=== PATIENT | female | born 1985 | race African-American/Black ===

== ENCOUNTER 2019-01-23 15:18 | Inpatient (IN) | payer MEDICAID, OTHER ==
[~2019-01-23] VITALS: Ht 309.9 cm; Wt 90.7 kg
[~2019-01-23 15:18] MED LIST: ALBUTEROL; METOCLOPRAMIDE; OMEPRAZOLE
[2019-01-23] MEDS ORDERED: ONDANSETRON HCL 4MG/2ML INJ IV STA (16:23)
[2019-01-23] MEDS ORDERED: KETOROLAC 30MG/ML VIAL IV STA (16:23)
[2019-01-23] MEDS ORDERED: SODIUM CHLORIDE 0.9% 1,000 ML IV ONE (16:23)
[2019-01-23] MEDS ORDERED: DICYCLOMINE HCL 10MG/ML 2ML AMP IM ONE (16:30)
[2019-01-23 17:16] LABS: HEMATOCRIT. 41.5 % (36.0-48.0); HEMOGLOBIN. 13.5 g/dL (12.0-16.0); MEAN CORPUSCULAR HEMOGLOBIN 28.8 pg (28.0-32.0); MEAN CORPUSCULAR VOLUME 88.6 fL (81.0-99.0); MEAN PLATELET VOLUME 8.7 fl (7.4-10.4); PLATELET 284 x1000/uL (130-400); RED BLOOD CELL COUNT 4.68 mill/uL (4.2-5.4); RED CELL DISTRIBUTION WIDTH 16.1 % (11.6-14.6)
[2019-01-23 17:22] LABS: CHLORIDE 98 mEq/L (98-107)
[2019-01-23 17:34] LABS: INR 0.9; PROTHROMBIN TIME 9.8 sec (9.6-11.0)
[2019-01-23 17:40] LABS: HCG SCREEN NEGATIVE
[2019-01-23 17:49] LABS: PLATELET ESTIMATE NORMAL
[2019-01-23] MEDS ORDERED: ACETAMINOPHEN 325MG TABLET PO PRN (18:00)
[2019-01-23] MEDS ORDERED: HYDROCODONE/ACETAMINOPHEN 5/325MG TABLET PO PRN (18:00)
[2019-01-23] MEDS ORDERED: MAGNESIUM/ALUMINUM HYDROXIDE/SIMETHICONE 30ML UDC PO PRN (18:00)
[2019-01-23] MEDS ORDERED: GUAIFENESIN 200MG/10ML SUGAR FREE UDC PO PRN (18:00)
[2019-01-23] MEDS ORDERED: ONDANSETRON HCL 4MG/2ML INJ IV ONE (18:00)
[2019-01-23] MEDS ORDERED: DIPHENHYDRAMINE 50MG/ML VIAL IV PRN (18:00)
[2019-01-23] MEDS ORDERED: DOCUSATE SODIUM 100MG CAPSULE PO PRN (18:00)
[2019-01-23] MEDS ORDERED: LORAZEPAM 2MG/ML CPJ IV PRN (18:00)
[2019-01-23] MEDS ORDERED: POTASSIUM CHLORIDE 20MEQ TABLET SR PO ONE (18:00)
[2019-01-23] MEDS ORDERED: ENOXAPARIN 40MG/0.4ML SYR SUBCUT SCH (18:00)
[2019-01-23] MEDS ORDERED: CLONIDINE 0.1MG TABLET PO PRN (18:00)
[2019-01-23] MEDS ORDERED: IPRATROPIUM/ALBUTEROL 0.5-3(2.5)MG/3ML NEB INH PRN (18:00)
[2019-01-23] MEDS ORDERED: NA PHOS,M-B/NA PHOS,DI-BA ENEMA 118ML PR PRN (18:00)
[2019-01-23] MEDS ORDERED: ONDANSETRON HCL 4MG/2ML INJ IV PRN (18:00)
[2019-01-23] MEDS ORDERED: KCL 10MEQ/50ML PREMIX 50 ML IV ONE (18:00)
[2019-01-23] MEDS ORDERED: LEVOFLOXACIN 500MG PREMIX 100 ML IV NR (20:30)
[2019-01-23] MEDS ORDERED: METRONIDAZOLE 500 MG PREMIX 100 ML IV NR (20:30)
[2019-01-23 22:45] VITALS: BP 163/93
[2019-01-23] MEDS: MORPHINE SULFATE 2 MG/ML CPJ (NOT FOR IM USE) IV PRN (22:54)
[2019-01-24] VITALS (7 sets, daily range): BP systolic 107–164; BP diastolic 67–111
[2019-01-24] MEDS: SODIUM CHLORIDE 0.45% 1,000 ML IV SCH ×2 (01:26→17:09)
[2019-01-24] MEDS ORDERED: METRONIDAZOLE 500 MG PREMIX 100 ML IV SCH (06:00)
[2019-01-24] MEDS: MORPHINE SULFATE 2 MG/ML CPJ (NOT FOR IM USE) IV PRN ×4 (07:13→20:15)
[2019-01-24 07:16] LABS: CHLORIDE 102 mEq/L (98-107)
[2019-01-24 07:26] LABS: ETHANOL BLOOD < 10 mg/dL; LDL CHOLESTEROL 77 mg/dL (5-100)
[2019-01-24 07:29] LABS: T4 FREE 0.96 ng/dL (0.76-1.46)
[2019-01-24 07:30] LABS: HDL CHOLESTEROL 65 mg/dL (40-59)
[2019-01-24 07:35] LABS: BASOPHILS % 0.2 % (0.0-2.0); EOSINOPHILS % 0.1 % (0.0-5.0); HEMATOCRIT. 34.7 % (36.0-48.0); HEMOGLOBIN. 11.5 g/dL (12.0-16.0); LYMPHOCYTES % 14.9 % (20.0-50.0); MEAN CORPUSCULAR HEMOGLOBIN 29.3 pg (28.0-32.0); MEAN CORPUSCULAR VOLUME 88.2 fL (81.0-99.0); MEAN PLATELET VOLUME 8.8 fl (7.4-10.4); MONOCYTES % 9.2 % (2.0-8.0); NEUTROPHILS % 75.6 % (40.0-76.0); PLATELET 243 x1000/uL (130-400); RED BLOOD CELL COUNT 3.93 mill/uL (4.2-5.4)
[2019-01-24] MEDS: ENOXAPARIN 30MG/0.3ML SYR SUBCUT SCH ×2 (09:00→20:57)
[2019-01-24] MEDS ORDERED: POTASSIUM CHLORIDE INJ 40 MEQ in DEXT 5% WATER 250 ML IV SCH ×2 (09:00→10:00)
[2019-01-24] MEDS: OMEPRAZOLE 20MG CAPSULE EXTENDED RELEASE PO SCH (15:12)
[2019-01-24] MEDS: METRONIDAZOLE 500 MG PREMIX 100 ML IV SCH (17:09)
[2019-01-24] MEDS ORDERED: LEVOFLOXACIN 500MG PREMIX 100 ML IV SCH ×2 (18:00→23:00)
[2019-01-25] MEDS: METRONIDAZOLE 500 MG PREMIX 100 ML IV SCH ×2 (00:16→08:25)
[2019-01-25 00:22] VITALS: BP 109/60
[2019-01-25] MEDS: MORPHINE SULFATE 2 MG/ML CPJ (NOT FOR IM USE) IV PRN ×2 (00:25→09:25)
[2019-01-25 04:39] VITALS: BP 104/65
[2019-01-25] MEDS: OMEPRAZOLE 20MG CAPSULE EXTENDED RELEASE PO SCH (06:27)
[2019-01-25 08:00] VITALS: BP 120/72
[2019-01-25 08:17] LABS: BASOPHILS % 0.7 % (0.0-2.0); EOSINOPHILS % 0.3 % (0.0-5.0); HEMATOCRIT. 38.2 % (36.0-48.0); HEMOGLOBIN. 12.3 g/dL (12.0-16.0); MEAN CORPUSCULAR HEMOGLOBIN 28.9 pg (28.0-32.0); MEAN CORPUSCULAR VOLUME 89.6 fL (81.0-99.0); MEAN PLATELET VOLUME 8.8 fl (7.4-10.4); MONOCYTES % 10.7 % (2.0-8.0); NEUTROPHILS % 58.3 % (40.0-76.0); PLATELET 234 x1000/uL (130-400); RED BLOOD CELL COUNT 4.26 mill/uL (4.2-5.4); RED CELL DISTRIBUTION WIDTH 16.2 % (11.6-14.6)
[2019-01-25] MEDS: ENOXAPARIN 30MG/0.3ML SYR SUBCUT SCH (09:00)
[2019-01-25 09:02] LABS: CHLORIDE 104 mEq/L (98-107)
[2019-01-25] MEDS ORDERED: POTASSIUM CHLORIDE 20MEQ TABLET SR PO NR (12:15)
[2019-01-25 12:44] VITALS: BP 120/72
== END 2019-01-25 13:28 | disposition home or self-care (01) | DRG 241 ==
LOC: ER 15:18 → 6EST 17:51 → EDBEDREQ 17:57 → ENRESERV 22:23 → 6WST 01-24 11:40
PROVIDERS: ADMIT Internal Medicine; ATTEND Internal Medicine
DX: K29.70 Gastritis, unspecified, without bleeding (principal); R65.10 Systemic inflammatory response syndrome (SIRS) of non-infectious origin without acute organ dysfunction; R10.9 Unspecified abdominal pain; E86.0 Dehydration; E87.6 Hypokalemia; I10 Essential (primary) hypertension; F17.200 Nicotine dependence, unspecified, uncomplicated
CPT/HCPCS: 36415; 74176; 76705; 80048; 80061; 80320; 82150; 83735; 84132; 84439; 84443; 84703; 96361; 96372; 96374; 96375; 99285; J0500; J1650; J1885; J1956; J2270; J2405; J3480; J3490; J7030; J7060; G0480

== ENCOUNTER 2019-02-12 08:09 | Emergency (ER) | payer MEDICAID ==
[~2019-02-12] VITALS: Ht 157.5 cm; Wt 88.0 kg
[2019-02-12 09:02] LABS: BASOPHILS % 0.4 % (0.0-2.0); EOSINOPHILS % 0.2 % (0.0-5.0); HEMATOCRIT. 35.8 % (36.0-48.0); HEMOGLOBIN. 11.7 g/dL (12.0-16.0); LYMPHOCYTES % 13.7 % (20.0-50.0); MEAN CORPUSCULAR HEMOGLOBIN 28.8 pg (28.0-32.0); MEAN CORPUSCULAR VOLUME 88.1 fL (81.0-99.0); MONOCYTES % 4.9 % (2.0-8.0); NEUTROPHILS % 80.8 % (40.0-76.0); PLATELET 271 x1000/uL (130-400); RED BLOOD CELL COUNT 4.06 mill/uL (4.2-5.4); RED CELL DISTRIBUTION WIDTH 16.4 % (11.6-14.6)
[2019-02-12 09:10] LABS: CHLORIDE 108 mEq/L (98-107)
[2019-02-12] MEDS ORDERED: METOCLOPRAMIDE HCL 10MG/2ML VIAL IV ONE (09:15)
[2019-02-12] MEDS ORDERED: DIPHENHYDRAMINE 50MG/ML VIAL IV ONE (09:15)
[2019-02-12] MEDS ORDERED: SODIUM CHLORIDE 0.9% 1,000 ML IV ONE (09:15)
[2019-02-12] MEDS ORDERED: FAMOTIDINE 20MG/2ML VIAL IV ONE (09:15)
[2019-02-12 09:33] LABS: CLARITY URINE CLEAR (CLEAR); COLOR URINE YELLOW (YELLOW); KETONES URINE NEGATIVE (NEGATIVE); LEUKOCYTE ESTERASE URINE NEGATIVE (NEGATIVE); NITRITE URINE NEGATIVE (NEGATIVE); OCCULT BLOOD URINE TRACE (NEGATIVE); PH URINE 7.5 (4.5-8.0); PROTEIN URINE NEGATIVE (NEGATIVE); SPECIFIC GRAVITY URINE 1.013 (1.005-1.030); UROBILINOGEN URINE 0.2 E.U./dL (0.2-1.0)
[2019-02-12 14:40] VITALS: BP 156/89
== END 2019-02-12 15:10 | disposition home or self-care (01) ==
LOC: ER 08:20
DX: K29.70 Gastritis, unspecified, without bleeding (principal); R11.2 Nausea with vomiting, unspecified; F17.200 Nicotine dependence, unspecified, uncomplicated; Z79.899 Other long term (current) drug therapy
CPT/HCPCS: 36415; 80053; 81003; 81025; 83690; 85025; 85610; 96361; 96374; 96375; 99284; J1200; J2765; J3490; J7030

== ENCOUNTER 2019-05-27 18:24 | Inpatient (IN) | payer MEDICAID, OTHER ==
[~2019-05-27] VITALS: Ht 157.5 cm; Wt 86.2 kg
[2019-05-27] MEDS ORDERED: METOCLOPRAMIDE HCL 10MG/2ML VIAL IV STA (20:16)
[2019-05-27] MEDS ORDERED: FAMOTIDINE 20MG/2ML VIAL IV STA (20:16)
[2019-05-27] MEDS ORDERED: SODIUM CHLORIDE 0.9% 1,000 ML IV ONE (20:16)
[2019-05-27] MEDS ORDERED: ONDANSETRON HCL 4MG/2ML INJ IV STA (20:16)
[2019-05-27] MEDS ORDERED: VISCOUS LIDOCAINE 2% 15 ML UDC MM STA (21:16)
[2019-05-27] MEDS ORDERED: FAMOTIDINE 20MG/2ML VIAL IV ONE (21:30)
[2019-05-27] MEDS ORDERED: MAGNESIUM/ALUMINUM HYDROXIDE/SIMETHICONE 30ML UDC PO ONE (21:30)
[2019-05-27 23:36] LABS: BASOPHILS % 0.4 % (0.0-2.0); HEMATOCRIT. 40.5 % (36.0-48.0); HEMOGLOBIN. 13.1 g/dL (12.0-16.0); MEAN CORPUSCULAR HEMOGLOBIN 28.4 pg (28.0-32.0); MEAN CORPUSCULAR VOLUME 87.9 fL (81.0-99.0); MEAN PLATELET VOLUME 8.5 fl (7.4-10.4); MONOCYTES % 6.4 % (2.0-8.0); NEUTROPHILS % 85.2 % (40.0-76.0); PLATELET 281 x1000/uL (130-400); RED BLOOD CELL COUNT 4.61 mill/uL (4.2-5.4); RED CELL DISTRIBUTION WIDTH 17.4 % (11.6-14.6)
[2019-05-27 23:58] LABS: CLARITY URINE TURBID (CLEAR); COLOR URINE YELLOW (YELLOW); KETONES URINE TRACE (NEGATIVE); LEUKOCYTE ESTERASE URINE TRACE (NEGATIVE); NITRITE URINE NEGATIVE (NEGATIVE); OCCULT BLOOD URINE NEGATIVE (NEGATIVE); PROTEIN URINE 2+ (NEGATIVE); SPECIFIC GRAVITY URINE 1.023 (1.005-1.030)
[2019-05-28] MEDS: DEXT 5%/0.45% NACL 1000ML 1,000 ML IV SCH ×2 (00:30→14:14)
[2019-05-28 00:40] LABS: CHLORIDE 105 mEq/L (98-107)
[2019-05-28] MEDS ORDERED: MORPHINE SULFATE 4 MG/ML CPJ (NOT FOR IM USE) IV ONE (01:15)
[2019-05-28] MEDS: POTASSIUM CHLORIDE 20MEQ TABLET SR PO SCH ×2 (04:40→04:41)
[2019-05-28] MEDS ORDERED: DOCUSATE SODIUM 100MG CAPSULE PO PRN (07:00)
[2019-05-28] MEDS ORDERED: ENOXAPARIN 40MG/0.4ML SYR SUBCUT SCH (07:00)
[2019-05-28] MEDS ORDERED: ACETAMINOPHEN 650MG SUPP PR PRN (07:00)
[2019-05-28] MEDS ORDERED: CLONIDINE 0.1MG TABLET PO PRN (07:00)
[2019-05-28] MEDS ORDERED: GUAIFENESIN 200MG/10ML SUGAR FREE UDC PO PRN (07:00)
[2019-05-28] MEDS ORDERED: IPRATROPIUM/ALBUTEROL 0.5-3(2.5)MG/3ML NEB HHN PRN (07:00)
[2019-05-28] MEDS ORDERED: MAGNESIUM/ALUMINUM HYDROXIDE/SIMETHICONE 30ML UDC PO PRN (07:00)
[2019-05-28] MEDS ORDERED: NA PHOS,M-B/NA PHOS,DI-BA ENEMA 118ML PR PRN (07:00)
[2019-05-28] MEDS ORDERED: ACETAMINOPHEN 325MG TABLET PO PRN (07:00)
[2019-05-28] MEDS ORDERED: DIPHENHYDRAMINE 50MG/ML VIAL IV PRN (07:00)
[2019-05-28] MEDS ORDERED: ACETAMINOPHEN 650MG/20.3ML UDC GT PRN (07:00)
[2019-05-28] MEDS: ONDANSETRON HCL 4MG/2ML INJ IV PRN ×2 (08:23→21:54)
[2019-05-28 08:30] VITALS: BP 145/91
[2019-05-28] MEDS: MORPHINE SULFATE 2 MG/ML CPJ (NOT FOR IM USE) IV PRN ×3 (08:47→21:56)
[2019-05-28] MEDS: FOLIC ACID 1MG TABLET PO SCH (08:48)
[2019-05-28] MEDS: FAMOTIDINE 20MG/2ML VIAL IV SCH (08:48)
[2019-05-28] MEDS: THIAMINE HCL 100MG TABLET PO SCH (08:48)
[2019-05-28] MEDS: ENOXAPARIN 30MG/0.3ML SYR SUBCUT SCH ×3 (09:00→21:36)
[2019-05-28] MEDS: METOCLOPRAMIDE HCL 10MG/2ML VIAL IV SCH ×2 (11:32→17:29)
[2019-05-28 11:39] LABS: BASOPHILS % 0.7 % (0.0-2.0); HEMATOCRIT. 38.9 % (36.0-48.0); HEMOGLOBIN. 12.4 g/dL (12.0-16.0); LYMPHOCYTES % 10.2 % (20.0-50.0); MEAN CORPUSCULAR HEMOGLOBIN 28.1 pg (28.0-32.0); MEAN CORPUSCULAR VOLUME 88.1 fL (81.0-99.0); MEAN PLATELET VOLUME 8.7 fl (7.4-10.4); MONOCYTES % 6.4 % (2.0-8.0); NEUTROPHILS % 82.7 % (40.0-76.0); PLATELET 281 x1000/uL (130-400); RED BLOOD CELL COUNT 4.42 mill/uL (4.2-5.4); RED CELL DISTRIBUTION WIDTH 17.3 % (11.6-14.6)
[2019-05-28 11:47] LABS: PROTHROMBIN TIME 10.5 sec (9.6-11.0)
[2019-05-28 11:49] LABS: CHLORIDE 104 mEq/L (98-107)
[2019-05-28 11:53] LABS: ETHANOL BLOOD < 10 mg/dL
[2019-05-28] MEDS ORDERED: POTASSIUM CHLORIDE INJ 40 MEQ in DEXT 5% WATER 500 ML IV NR (13:00)
[2019-05-28 14:08] LABS: *AMPHETAMINES SCREEN URINE NEGATIVE (NEGATIVE); *BARBITURATES SCREEN URINE NEGATIVE (NEGATIVE); *BENZODIAZEPINES SCREEN URINE NEGATIVE (NEGATIVE); *COCAINE SCREEN URINE NEGATIVE (NEGATIVE); METHADONE URINE SCREEN NEGATIVE (NEGATIVE); PHENCYCLIDINE URINE SCREEN NEGATIVE (NEGATIVE)
[2019-05-28] MEDS: CHLORDIAZEPOXIDE 25MG CAPSULE PO SCH ×2 (14:10→21:32)
[2019-05-28] MEDS: SODIUM CHLORIDE 0.9% INJ 3ML FLUSH IVF SCH ×2 (14:14→21:32)
[2019-05-28 14:21] LABS: CANNABINOID URINE SCREEN PRESUMTIVE POSITIVE (NEGATIVE); OPIATES URINE SCREEN PRESUMTIVE POSITIVE (NEGATIVE)
[2019-05-28 16:00] VITALS: BP 173/79
[2019-05-28 20:00] VITALS: BP 110/69
[2019-05-29] VITALS (7 sets, daily range): BP systolic 100–150; BP diastolic 61–91
[2019-05-29] MEDS: ONDANSETRON HCL 4MG/2ML INJ IV PRN (04:07)
[2019-05-29] MEDS: MORPHINE SULFATE 2 MG/ML CPJ (NOT FOR IM USE) IV PRN ×4 (04:15→18:24)
[2019-05-29] MEDS: CHLORDIAZEPOXIDE 25MG CAPSULE PO SCH ×2 (06:00→14:20)
[2019-05-29] MEDS: METOCLOPRAMIDE HCL 10MG/2ML VIAL IV SCH ×4 (06:33→18:23)
[2019-05-29] MEDS: SODIUM CHLORIDE 0.9% INJ 3ML FLUSH IVF SCH ×2 (06:34→13:15)
[2019-05-29 06:54] LABS: BASOPHILS % 0.4 % (0.0-2.0); EOSINOPHILS % 0.1 % (0.0-5.0); MEAN CORPUSCULAR HEMOGLOBIN 28.9 pg (28.0-32.0); MEAN CORPUSCULAR VOLUME 86.6 fL (81.0-99.0); MEAN PLATELET VOLUME 8.5 fl (7.4-10.4); MONOCYTES % 8.2 % (2.0-8.0); NEUTROPHILS % 77.3 % (40.0-76.0); PLATELET 294 x1000/uL (130-400); RED BLOOD CELL COUNT 4.51 mill/uL (4.2-5.4); RED CELL DISTRIBUTION WIDTH 16.6 % (11.6-14.6)
[2019-05-29 07:03] LABS: CHLORIDE 101 mEq/L (98-107)
[2019-05-29 07:12] LABS: LDL CHOLESTEROL 93 mg/dL (5-100)
[2019-05-29 07:14] LABS: HDL CHOLESTEROL 59 mg/dL (40-59)
[2019-05-29] MEDS: FOLIC ACID 1MG TABLET PO SCH (09:06)
[2019-05-29] MEDS: FAMOTIDINE 20MG/2ML VIAL IV SCH (09:06)
[2019-05-29] MEDS: THIAMINE HCL 100MG TABLET PO SCH (09:06)
[2019-05-29] MEDS: DEXT 5%/0.45% NACL 1000ML 1,000 ML IV SCH (14:28)
[2019-05-29] MEDS ORDERED: POTASSIUM CHLORIDE 20MEQ TABLET SR PO NR (20:00)
== END 2019-05-29 20:24 | disposition home or self-care (01) | DRG 282 ==
LOC: ER 18:24 → EDBEDREQTM 05-28 01:13 → EDBEDREQ 05-28 01:13 → ENRESERV 05-28 07:07 → 6EST 05-28 08:11
PROVIDERS: ADMIT Family Medicine; ATTEND Family Medicine
DX: K85.90 Acute pancreatitis without necrosis or infection, unspecified (principal); D64.9 Anemia, unspecified; E87.6 Hypokalemia; F12.90 Cannabis use, unspecified, uncomplicated; F17.210 Nicotine dependence, cigarettes, uncomplicated; E86.0 Dehydration; F10.10 Alcohol abuse, uncomplicated; Z98.891 History of uterine scar from previous surgery; Z71.6 Tobacco abuse counseling; K52.9 Noninfective gastroenteritis and colitis, unspecified
CPT/HCPCS: 36415; 76700; 80048; 80061; 80305; 80320; 81003; 83735; 99285; J1200; J1650; J2270; J2405; J2765; J3480; J3490; J7030; J7060; G0480

== ENCOUNTER 2019-10-07 15:20 | Emergency (ER) | payer OTHER ==
[~2019-10-07] VITALS: Ht 157.5 cm; Wt 86.3 kg
[2019-10-07] MEDS ORDERED: MORPHINE SULFATE 2 MG/ML CPJ (NOT FOR IM USE) IV ONE (18:00)
[2019-10-07] MEDS ORDERED: ONDANSETRON HCL 4MG/2ML INJ IV STA (18:00)
[2019-10-07] MEDS ORDERED: SODIUM CHLORIDE 0.9% 1,000 ML IV ONE (18:00)
[2019-10-07 18:57] LABS: CHLORIDE 99 mEq/L (98-107)
[2019-10-07 19:01] LABS: INR 0.9; PROTHROMBIN TIME 9.8 sec (9.6-11.0)
[2019-10-07 19:02] LABS: CLARITY URINE CLEAR (CLEAR); COLOR URINE YELLOW (YELLOW); KETONES URINE 2+ (NEGATIVE); LEUKOCYTE ESTERASE URINE TRACE (NEGATIVE); NITRITE URINE NEGATIVE (NEGATIVE); OCCULT BLOOD URINE NEGATIVE (NEGATIVE); PROTEIN URINE 1+ (NEGATIVE); SPECIFIC GRAVITY URINE 1.022 (1.005-1.030); UROBILINOGEN URINE 0.2 E.U./dL (0.2-1.0)
[2019-10-07 19:03] LABS: HEMATOCRIT. 40.4 % (36.0-48.0); HEMOGLOBIN. 13.3 g/dL (12.0-16.0); MEAN CORPUSCULAR HEMOGLOBIN 26.6 pg (28.0-32.0); MEAN CORPUSCULAR VOLUME 81.1 fL (81.0-99.0); MEAN PLATELET VOLUME 8.2 fl (7.4-10.4); PLATELET 276 x1000/uL (130-400); RED BLOOD CELL COUNT 4.99 mill/uL (4.2-5.4); RED CELL DISTRIBUTION WIDTH 20.3 % (11.6-14.6)
[2019-10-07 19:08] LABS: HCG SCREEN NEGATIVE
[2019-10-07] MEDS ORDERED: KETOROLAC 30MG/ML VIAL IV NR (19:15)
[2019-10-07 19:30] VITALS: BP 168/74
[2019-10-07] MEDS ORDERED: MAGNESIUM/ALUMINUM HYDROXIDE/SIMETHICONE 30ML UDC PO ONE (19:45)
[2019-10-07] MEDS ORDERED: VISCOUS LIDOCAINE 2% 15 ML UDC PO ONE (19:45)
[2019-10-07 20:37] LABS: PLATELET ESTIMATE NORMAL
== END 2019-10-07 21:11 | disposition home or self-care (01) ==
LOC: ER 15:20
DX: A08.4 Viral intestinal infection, unspecified (principal); F12.10 Cannabis abuse, uncomplicated; Z87.19 Personal history of other diseases of the digestive system; Z98.890 Other specified postprocedural states
CPT/HCPCS: 36415; 80053; 81003; 81025; 83690; 84703; 85025; 85610; 96361; 96374; 96375; 99283; J1885; J2270; J2405; J7030; Z7610

== ENCOUNTER 2019-12-30 15:04 | Emergency (ER) | payer OTHER ==
[~2019-12-30] VITALS: Ht 157.5 cm; Wt 90.7 kg
[2019-12-30] MEDS ORDERED: SODIUM CHLORIDE 0.9% 1,000 ML IV ONE (16:38)
[2019-12-30] MEDS ORDERED: ONDANSETRON HCL 4MG/2ML INJ IV STA (16:38)
[2019-12-30] MEDS ORDERED: MORPHINE SULFATE 4 MG/ML CPJ (NOT FOR IM USE) IV STA (16:38)
[2019-12-30] MEDS ORDERED: FAMOTIDINE 20MG/2ML VIAL IV STA (16:38)
[2019-12-30 16:55] LABS: BASOPHILS % 0.3 % (0.0-2.0); EOSINOPHILS % 0.1 % (0.0-5.0); HEMATOCRIT. 39.9 % (36.0-48.0); LYMPHOCYTES % 8.9 % (20.0-50.0); MEAN CORPUSCULAR HEMOGLOBIN 26.8 pg (28.0-32.0); MEAN CORPUSCULAR VOLUME 82.3 fL (81.0-99.0); MEAN PLATELET VOLUME 8.3 fl (7.4-10.4); MONOCYTES % 6.8 % (2.0-8.0); NEUTROPHILS % 83.9 % (40.0-76.0); PLATELET 316 x1000/uL (130-400); RED BLOOD CELL COUNT 4.85 mill/uL (4.2-5.4)
[2019-12-30 17:02] LABS: CHLORIDE 96 mEq/L (98-107)
[2019-12-30 17:03] LABS: INR 0.9; PROTHROMBIN TIME 10.1 sec (9.6-11.0)
[2019-12-30 17:22] LABS: CLARITY URINE CLEAR (CLEAR); COLOR URINE YELLOW (YELLOW); KETONES URINE 1+ (NEGATIVE); LEUKOCYTE ESTERASE URINE 1+ (NEGATIVE); NITRITE URINE NEGATIVE (NEGATIVE); OCCULT BLOOD URINE NEGATIVE (NEGATIVE); PROTEIN URINE NEGATIVE (NEGATIVE); SPECIFIC GRAVITY URINE 1.016 (1.005-1.030); UROBILINOGEN URINE 0.2 E.U./dL (0.2-1.0)
[2019-12-30 22:16] VITALS: BP 146/82
== END 2019-12-30 22:41 | disposition home or self-care (01) ==
LOC: ER 15:06
DX: K29.20 Alcoholic gastritis without bleeding (principal); F10.10 Alcohol abuse, uncomplicated; F12.10 Cannabis abuse, uncomplicated; F17.210 Nicotine dependence, cigarettes, uncomplicated; Y90.0 Blood alcohol level of less than 20 mg/100 ml; Z87.19 Personal history of other diseases of the digestive system; Z98.890 Other specified postprocedural states
CPT/HCPCS: 36415; 80053; 80320; 81003; 81025; 83690; 85025; 85610; 96361; 96374; 96375; 99285; J2270; J2405; J3490; J7030; G0480

== ENCOUNTER 2020-01-31 15:40 | Inpatient (IN) | payer OTHER ==
[~2020-01-31] VITALS: Ht 154.9 cm; Wt 90.7 kg
[2020-01-31] MEDS ORDERED: SODIUM CHLORIDE 0.9% 1,000 ML IV ONE ×2 (17:07→18:12)
[2020-01-31] MEDS ORDERED: MORPHINE SULFATE 4 MG/ML CPJ (NOT FOR IM USE) IV STA ×2 (17:07→18:12)
[2020-01-31] MEDS: KETOROLAC 30MG/ML VIAL IV STA ×2 (17:27→17:45)
[2020-01-31 17:37] LABS: HEMATOCRIT. 38.3 % (36.0-48.0); HEMOGLOBIN. 12.5 g/dL (12.0-16.0); MEAN CORPUSCULAR HEMOGLOBIN 26.1 pg (28.0-32.0); MEAN CORPUSCULAR VOLUME 80.1 fL (81.0-99.0); MEAN PLATELET VOLUME 8.8 fl (7.4-10.4); PLATELET 288 x1000/uL (130-400); RED BLOOD CELL COUNT 4.78 mill/uL (4.2-5.4); RED CELL DISTRIBUTION WIDTH 18.1 % (11.6-14.6)
[2020-01-31 17:40] LABS: CHLORIDE 97 mEq/L (98-107)
[2020-01-31 17:44] LABS: INR 0.9
[2020-01-31 17:47] LABS: HCG SCREEN NEGATIVE
[2020-01-31 18:02] LABS: PLATELET ESTIMATE NORMAL
[2020-01-31] MEDS ORDERED: ONDANSETRON HCL 4MG/2ML INJ IV STA (18:12)
[2020-01-31] MEDS ORDERED: IOHEXOL-300 100 ML BOTTLE ONE (19:47)
[2020-01-31] MEDS ORDERED: KETOROLAC 30MG/ML VIAL IV PRN (22:30)
[2020-01-31 22:50] VITALS: BP 148/83
[2020-02-01] VITALS: BP 131/65
[2020-02-01] MEDS: MORPHINE SULFATE 2 MG/ML CPJ (NOT FOR IM USE) IV PRN ×4 (00:20→18:09)
[2020-02-01] MEDS: ONDANSETRON HCL 4MG/2ML INJ IV PRN ×2 (00:30→08:37)
[2020-02-01] MEDS ORDERED: IMOD (01:09)
[2020-02-01] MEDS ORDERED: NITR100C11 (01:09)
[2020-02-01] MEDS ORDERED: CEPH500C2 (01:09)
[2020-02-01] MEDS ORDERED: ONDA4TAB11 (01:09)
[2020-02-01 04:00] VITALS: BP 97/71
[2020-02-01] MEDS ORDERED: POTASSIUM CHLORIDE 20MEQ TABLET SR PO NR (07:45)
[2020-02-01] MEDS: DEXT 5%/0.45% NACL 1000ML 1,000 ML IV SCH ×3 (08:56→18:08)
[2020-02-01 09:58] LABS: CLARITY URINE CLEAR (CLEAR); COLOR URINE YELLOW (YELLOW); KETONES URINE NEGATIVE (NEGATIVE); LEUKOCYTE ESTERASE URINE 1+ (NEGATIVE); NITRITE URINE NEGATIVE (NEGATIVE); OCCULT BLOOD URINE NEGATIVE (NEGATIVE); PH URINE 6.5 (4.5-8.0); PROTEIN URINE TRACE (NEGATIVE); SPECIFIC GRAVITY URINE 1.056 (1.005-1.030)
[2020-02-01 10:22] LABS: *AMPHETAMINES SCREEN URINE NEGATIVE (NEGATIVE); *BENZODIAZEPINES SCREEN URINE NEGATIVE (NEGATIVE); *COCAINE SCREEN URINE NEGATIVE (NEGATIVE)
[2020-02-01 10:23] LABS: PHENCYCLIDINE URINE SCREEN NEGATIVE (NEGATIVE)
[2020-02-01 10:24] LABS: *BARBITURATES SCREEN URINE NEGATIVE (NEGATIVE); METHADONE URINE SCREEN NEGATIVE (NEGATIVE)
[2020-02-01 10:29] LABS: CANNABINOID URINE SCREEN PRESUMTIVE POSITIVE (NEGATIVE); OPIATES URINE SCREEN PRESUMTIVE POSITIVE (NEGATIVE)
[2020-02-01 12:00] VITALS: BP 102/55
[2020-02-01] MEDS: CEFTRIAXONE 1 G PREMIX 50 ML IV SCH (14:27)
[2020-02-01 16:00] VITALS: BP 105/70
[2020-02-01 20:00] VITALS: BP 90/57
[2020-02-02] VITALS: BP 92/51
[2020-02-02] MEDS: MORPHINE SULFATE 2 MG/ML CPJ (NOT FOR IM USE) IV PRN ×4 (00:29→13:28)
[2020-02-02] MEDS: DEXT 5%/0.45% NACL 1000ML 1,000 ML IV SCH (00:34)
[2020-02-02 04:00] VITALS: BP 91/53
[2020-02-02 08:00] VITALS: BP 111/52
[2020-02-02 12:00] VITALS: BP 90/49
[2020-02-02] MEDS: CEFTRIAXONE 1 G PREMIX 50 ML IV SCH (13:33)
[2020-02-02 13:50] VITALS: BP 17/90
== END 2020-02-02 14:59 | disposition home or self-care (01) | DRG 282 ==
LOC: ER 15:40 → EDBEDREQ 21:51 → EDBEDREQTM 21:51 → 6EST 23:39
PROVIDERS: ADMIT Internal Medicine; ATTEND Internal Medicine
DX: K85.90 Acute pancreatitis without necrosis or infection, unspecified (principal); E87.8 Other disorders of electrolyte and fluid balance, not elsewhere classified; E66.9 Obesity, unspecified; E87.1 Hypo-osmolality and hyponatremia; N83.209 Unspecified ovarian cyst, unspecified side; M47.816 Spondylosis without myelopathy or radiculopathy, lumbar region; E87.6 Hypokalemia; F17.210 Nicotine dependence, cigarettes, uncomplicated; F10.10 Alcohol abuse, uncomplicated; Z68.37 Body mass index [BMI] 37.0-37.9, adult; Z98.891 History of uterine scar from previous surgery; Z71.6 Tobacco abuse counseling; Z71.41 Alcohol abuse counseling and surveillance of alcoholic; Z71.3 Dietary counseling and surveillance
CPT/HCPCS: 36415; 71045; 74177; 76705; 80053; 80305; 81003; 84145; 84703; 85025; 99285; J0696; J1885; J2270; J2405; J7030; Q9967

== ENCOUNTER 2020-03-15 13:16 | Inpatient (IN) | payer OTHER ==
[~2020-03-15] VITALS: Ht 157.5 cm; Wt 86.2 kg
[~2020-03-15 13:16] MED LIST changes: +CEPH500C2; +IMOD; +NITR100C11; +ONDA4TAB11
[2020-03-15] MEDS ORDERED: ONDANSETRON HCL 4MG/2ML INJ IV STA ×2 (19:41→21:24)
[2020-03-15] MEDS ORDERED: SODIUM CHLORIDE 0.9% 1,000 ML IV ONE (19:41)
[2020-03-15] MEDS ORDERED: KETOROLAC 30MG/ML VIAL IV STA (19:41)
[2020-03-15 20:12] LABS: HEMATOCRIT. 37.2 % (36.0-48.0); HEMOGLOBIN. 11.7 g/dL (12.0-16.0); MEAN CORPUSCULAR HEMOGLOBIN 25.2 pg (28.0-32.0); MEAN CORPUSCULAR VOLUME 80.1 fL (81.0-99.0); MEAN PLATELET VOLUME 8.4 fl (7.4-10.4); PLATELET 346 x1000/uL (130-400); RED BLOOD CELL COUNT 4.64 mill/uL (4.2-5.4); RED CELL DISTRIBUTION WIDTH 19.9 % (11.6-14.6)
[2020-03-15 20:17] LABS: CLARITY URINE CLOUDY (CLEAR); COLOR URINE DARK YELLOW (YELLOW); KETONES URINE TRACE (NEGATIVE); LEUKOCYTE ESTERASE URINE 1+ (NEGATIVE); NITRITE URINE NEGATIVE (NEGATIVE); OCCULT BLOOD URINE NEGATIVE (NEGATIVE); PH URINE 6.5 (4.5-8.0); PROTEIN URINE 2+ (NEGATIVE); SPECIFIC GRAVITY URINE 1.033 (1.005-1.030)
[2020-03-15 20:18] LABS: CHLORIDE 102 mEq/L (98-107)
[2020-03-15] MEDS ORDERED: MORPHINE SULFATE 4 MG/ML CPJ (NOT FOR IM USE) IV STA (21:24)
[2020-03-15] MEDS ORDERED: CEFTRIAXONE 1 G PREMIX 50 ML IV ONE (21:30)
[2020-03-15] MEDS ORDERED: POTASSIUM CHLORIDE 20MEQ TABLET SR PO ONE (21:30)
[2020-03-15] MEDS ORDERED: POTASSIUM CHLORIDE INJ 40 MEQ in DEXT 5% WATER 500 ML IV ONE (21:30)
[2020-03-15 21:36] LABS: PLATELET ESTIMATE NORMAL
[2020-03-16] MEDS: MORPHINE SULFATE 4 MG/ML CPJ (NOT FOR IM USE) IV PRN ×2 (06:41→10:12)
[2020-03-16 09:05] VITALS: BP 173/101
[2020-03-16] MEDS ORDERED: ONDANSETRON HCL 4MG/2ML INJ IV PRN (09:15)
[2020-03-16 10:00] VITALS: BP_SYST 153; BP_SYST 173; BP_DIAS 101; BP_DIAS 82
[2020-03-16 12:00] VITALS: BP 110/74
[2020-03-16] MEDS: FAMOTIDINE 20MG/2ML VIAL IV SCH (12:12)
[2020-03-16] MEDS: FOLIC ACID 1 MG, THIAMINE HCL 100 MG, MVI, ADULT NO.1 10 ML in DEXTROSE 5% WATER 1,000 ML IV SCH ×4 (12:30)
[2020-03-16 16:00] VITALS: BP 99/63
[2020-03-16] MEDS ORDERED: CLONIDINE 0.1MG TABLET PO PRN (16:00)
[2020-03-16] MEDS ORDERED: AMLODIPINE 5MG TABLET PO NR (16:00)
[2020-03-16] MEDS: MORPHINE SULFATE 2 MG/ML CPJ (NOT FOR IM USE) IV PRN ×2 (16:31→20:33)
[2020-03-16 20:00] VITALS: BP 137/77
[2020-03-16] MEDS: AMLODIPINE 5MG TABLET PO SCH (20:30)
[2020-03-16] MEDS: DEXT 5%/0.45% NACL 1000ML 1,000 ML IV SCH (20:32)
[2020-03-16] MEDS ORDERED: CEFTRIAXONE 1 G PREMIX 50 ML IV SCH (21:00)
[2020-03-16] MEDS ORDERED: HYDROCODONE/ACETAMINOPHEN 10/325MG TABLET PO PRN (21:45)
[2020-03-17] VITALS: BP 100/70
[2020-03-17] MEDS: MORPHINE SULFATE 2 MG/ML CPJ (NOT FOR IM USE) IV PRN ×3 (00:44→10:43)
[2020-03-17] MEDS: DEXT 5%/0.45% NACL 1000ML 1,000 ML IV SCH (03:10)
[2020-03-17 04:00] VITALS: BP 115/75
[2020-03-17 06:52] LABS: BASOPHILS % 1.2 % (0.0-2.0); EOSINOPHILS % 0.3 % (0.0-5.0); HEMATOCRIT. 37.9 % (36.0-48.0); HEMOGLOBIN. 11.8 g/dL (12.0-16.0); LYMPHOCYTES % 34.7 % (20.0-50.0); MEAN CORPUSCULAR HEMOGLOBIN 25.5 pg (28.0-32.0); MEAN CORPUSCULAR VOLUME 81.9 fL (81.0-99.0); MEAN PLATELET VOLUME 8.5 fl (7.4-10.4); MONOCYTES % 7.2 % (2.0-8.0); NEUTROPHILS % 56.6 % (40.0-76.0); PLATELET 332 x1000/uL (130-400); RED BLOOD CELL COUNT 4.63 mill/uL (4.2-5.4); RED CELL DISTRIBUTION WIDTH 20.2 % (11.6-14.6)
[2020-03-17 07:00] LABS: CHLORIDE 103 mEq/L (98-107)
[2020-03-17 08:00] VITALS: BP 105/69
[2020-03-17] MEDS: AMLODIPINE 5MG TABLET PO SCH (09:00)
[2020-03-17] MEDS: FAMOTIDINE 20MG/2ML VIAL IV SCH (09:09)
[2020-03-17] MEDS: FOLIC ACID 1 MG, THIAMINE HCL 100 MG, MVI, ADULT NO.1 10 ML in DEXTROSE 5% WATER 1,000 ML IV SCH ×4 (09:09)
[2020-03-17 12:00] VITALS: BP_SYST 100; BP_SYST 110; BP_DIAS 62
[2020-03-17] MEDS ORDERED: POTASSIUM CHLORIDE 20MEQ TABLET SR PO NR (13:00)
[2020-03-17 14:06] VITALS: BP 100/62
== END 2020-03-17 14:57 | disposition home or self-care (01) | DRG 282 ==
LOC: ER 13:16 → MICUSO 23:27 → 6EST 03-16 09:20
PROVIDERS: ADMIT Internal Medicine; ATTEND Internal Medicine
DX: K85.90 Acute pancreatitis without necrosis or infection, unspecified (principal); R65.11 Systemic inflammatory response syndrome (SIRS) of non-infectious origin with acute organ dysfunction; E87.6 Hypokalemia; F10.10 Alcohol abuse, uncomplicated; F17.210 Nicotine dependence, cigarettes, uncomplicated; I10 Essential (primary) hypertension; I16.0 Hypertensive urgency; N39.0 Urinary tract infection, site not specified; Z98.891 History of uterine scar from previous surgery; Z71.6 Tobacco abuse counseling
CPT/HCPCS: 36415; 74176; 80048; 80053; 81003; 85025; 93005; 96374; 99291; J0696; J1885; J2270; J2405; J3411; J3480; J3490; J7030; J7060; J7070

== ENCOUNTER 2020-04-21 09:56 | Emergency (ER) | payer OTHER ==
[~2020-04-21] VITALS: Ht 157.5 cm; Wt 82.0 kg
[~2020-04-21 09:56] MED LIST changes: -CEPH500C2; -IMOD; -NITR100C11
[2020-04-21] MEDS ORDERED: SODIUM CHLORIDE 0.9% 1,000 ML IV ONE (10:30)
[2020-04-21] MEDS ORDERED: ONDANSETRON HCL 4MG/2ML INJ IV STA (10:30)
[2020-04-21] MEDS ORDERED: MORPHINE SULFATE 4 MG/ML CPJ (NOT FOR IM USE) IV STA (10:30)
[2020-04-21 11:01] LABS: HEMATOCRIT. 35.3 % (36.0-48.0); HEMOGLOBIN. 11.4 g/dL (12.0-16.0); MEAN CORPUSCULAR HEMOGLOBIN 25.7 pg (28.0-32.0); MEAN CORPUSCULAR VOLUME 79.2 fL (81.0-99.0); MEAN PLATELET VOLUME 8.5 fl (7.4-10.4); PLATELET 254 x1000/uL (130-400); RED BLOOD CELL COUNT 4.45 mill/uL (4.2-5.4)
[2020-04-21 11:04] LABS: CHLORIDE 105 mEq/L (98-107)
[2020-04-21 11:07] LABS: PROTHROMBIN TIME 10.5 sec (9.6-11.0)
[2020-04-21 11:27] LABS: CLARITY URINE TURBID (CLEAR); COLOR URINE YELLOW (YELLOW); KETONES URINE 3+ (NEGATIVE); LEUKOCYTE ESTERASE URINE TRACE (NEGATIVE); NITRITE URINE NEGATIVE (NEGATIVE); OCCULT BLOOD URINE 2+ (NEGATIVE); PROTEIN URINE TRACE (NEGATIVE); SPECIFIC GRAVITY URINE 1.021 (1.005-1.030); UROBILINOGEN URINE 0.2 E.U./dL (0.2-1.0)
[2020-04-21] MEDS ORDERED: MORPHINE SULFATE 4 MG/ML CPJ (NOT FOR IM USE) IV ONE (11:30)
[2020-04-21] MEDS ORDERED: DIPHENHYDRAMINE 25MG CAPSULE PO ONE (11:30)
[2020-04-21 11:45] LABS: PLATELET ESTIMATE NORMAL
[2020-04-21 16:05] VITALS: BP 171/89
[2020-04-22 14:11] LABS: UCG SCREEN NEGATIVE
== END 2020-04-21 16:28 | disposition home or self-care (01) ==
LOC: ER 09:56
DX: R10.13 Epigastric pain (principal); R11.2 Nausea with vomiting, unspecified; K85.90 Acute pancreatitis without necrosis or infection, unspecified; Z98.890 Other specified postprocedural states; Z79.899 Other long term (current) drug therapy
CPT/HCPCS: 36415; 76705; 80053; 81003; 81025; 83690; 85025; 85610; 93005; 96361; 96374; 96375; 96376; 99285; J2270; J2405; J7030; Q0163

== ENCOUNTER 2020-05-25 08:59 | Emergency (ER) | payer OTHER ==
[~2020-05-25] VITALS: Ht 157.5 cm; Wt 81.0 kg
[2020-05-25] MEDS ORDERED: FAMOTIDINE 20MG/2ML VIAL IV STA (09:46)
[2020-05-25] MEDS ORDERED: ONDANSETRON HCL 4MG/2ML INJ IV STA (09:46)
[2020-05-25] MEDS ORDERED: SODIUM CHLORIDE 0.9% 1,000 ML IV ONE ×2 (09:46→12:32)
[2020-05-25] MEDS ORDERED: MORPHINE SULFATE 4 MG/ML CPJ (NOT FOR IM USE) IV ONE (10:00)
[2020-05-25 10:46] LABS: HEMATOCRIT. 40.2 % (36.0-48.0); HEMOGLOBIN. 12.9 g/dL (12.0-16.0); MEAN CORPUSCULAR HEMOGLOBIN 25.8 pg (28.0-32.0); MEAN CORPUSCULAR VOLUME 80.5 fL (81.0-99.0); MEAN PLATELET VOLUME 8.8 fl (7.4-10.4); PLATELET 327 x1000/uL (130-400); RED CELL DISTRIBUTION WIDTH 19.7 % (11.6-14.6)
[2020-05-25 10:51] LABS: CHLORIDE 99 mEq/L (98-107)
[2020-05-25 10:55] LABS: PROTHROMBIN TIME 10.4 sec (9.6-11.0)
[2020-05-25 11:07] LABS: PLATELET ESTIMATE NORMAL
[2020-05-25 11:14] LABS: HCG SCREEN NEGATIVE
[2020-05-25] MEDS ORDERED: POTASSIUM CHLORIDE 20MEQ TABLET SR PO ONE (11:15)
[2020-05-25 12:53] LABS: CLARITY URINE CLEAR (CLEAR); COLOR URINE YELLOW (YELLOW); KETONES URINE 1+ (NEGATIVE); LEUKOCYTE ESTERASE URINE 2+ (NEGATIVE); NITRITE URINE NEGATIVE (NEGATIVE); OCCULT BLOOD URINE NEGATIVE (NEGATIVE); PH URINE 6.5 (4.5-8.0); PROTEIN URINE 1+ (NEGATIVE); SPECIFIC GRAVITY URINE 1.026 (1.005-1.030); UROBILINOGEN URINE 0.2 E.U./dL (0.2-1.0)
[2020-05-25 12:57] VITALS: BP 167/97
[2020-05-25] MEDS ORDERED: CEFTRIAXONE 1 G PREMIX 50 ML IV ONE (13:00)
[2020-05-25 17:47] LABS: *AMPHETAMINES SCREEN URINE NEGATIVE (NEGATIVE); *BARBITURATES SCREEN URINE NEGATIVE (NEGATIVE); *BENZODIAZEPINES SCREEN URINE NEGATIVE (NEGATIVE); *COCAINE SCREEN URINE NEGATIVE (NEGATIVE); CANNABINOID URINE SCREEN PRESUMTIVE POSITIVE (NEGATIVE); OPIATES URINE SCREEN PRESUMTIVE POSITIVE (NEGATIVE)
[2020-05-25 17:48] LABS: PHENCYCLIDINE URINE SCREEN NEGATIVE (NEGATIVE)
[2020-05-25 18:19] LABS: METHADONE URINE SCREEN NEGATIVE (NEGATIVE)
== END 2020-05-25 14:40 | disposition home or self-care (01) ==
LOC: ER 08:59
DX: N39.0 Urinary tract infection, site not specified (principal); N20.0 Calculus of kidney; K21.9 Gastro-esophageal reflux disease without esophagitis; Z98.890 Other specified postprocedural states; Z87.19 Personal history of other diseases of the digestive system
CPT/HCPCS: 36415; 71045; 76705; 80053; 80305; 81003; 81025; 83690; 84703; 85025; 85610; 87086; 93005; 96361; 96365; 96375; 99285; J0696; J2270; J2405; J3490; J7030

== ENCOUNTER 2020-05-30 07:56 | Emergency (ER) | payer OTHER ==
[~2020-05-30] VITALS: Ht 157.5 cm; Wt 82.0 kg
[2020-05-30] MEDS ORDERED: FAMOTIDINE 20MG/2ML VIAL IV STA (09:06)
[2020-05-30] MEDS ORDERED: MORPHINE SULFATE 4 MG/ML CPJ (NOT FOR IM USE) IV STA (09:06)
[2020-05-30] MEDS ORDERED: ONDANSETRON HCL 4MG/2ML INJ IV STA (09:06)
[2020-05-30] MEDS ORDERED: SODIUM CHLORIDE 0.9% 1,000 ML IV ONE (09:15)
[2020-05-30 09:50] VITALS: BP 177/104
[2020-05-30 10:28] LABS: HEMATOCRIT. 35.7 % (36.0-48.0); HEMOGLOBIN. 11.5 g/dL (12.0-16.0); MEAN CORPUSCULAR VOLUME 80.9 fL (81.0-99.0); MEAN PLATELET VOLUME 8.2 fl (7.4-10.4); PLATELET 268 x1000/uL (130-400); RED BLOOD CELL COUNT 4.41 mill/uL (4.2-5.4); RED CELL DISTRIBUTION WIDTH 19.3 % (11.6-14.6)
[2020-05-30 10:36] LABS: CHLORIDE 104 mEq/L (98-107)
[2020-05-30 10:39] LABS: HCG SCREEN NEGATIVE
[2020-05-30 11:36] LABS: PLATELET ESTIMATE NORMAL
[2020-05-30] MEDS ORDERED: ONDANSETRON HCL 4MG/2ML INJ IV ONE (13:15)
== END 2020-05-30 14:50 | disposition home or self-care (01) ==
LOC: ER 07:56
DX: K29.70 Gastritis, unspecified, without bleeding (principal); D64.9 Anemia, unspecified
CPT/HCPCS: 36415; 80053; 83690; 84703; 85025; 93005; 96361; 96374; 96375; 96376; 99284; J2270; J2405; J3490; J7030

== ENCOUNTER 2022-03-23 20:09 | Emergency (ER) | payer MEDICAID, OTHER ==
[~2022-03-23] VITALS: Ht 157.5 cm; Wt 69.9 kg
[2022-03-24] MEDS ORDERED: HYDROCODONE/ACETAMINOPHEN 5/325MG TABLET PO ONE (00:45)
[2022-03-24] MEDS ORDERED: ONDANSETRON 4MG ODT PO ONE (00:45)
[2022-03-24] MEDS ORDERED: ONDANSETRON HCL 4MG/2ML INJ IV ONE (01:00)
[2022-03-24] MEDS ORDERED: SODIUM CHLORIDE 0.9% 1,000 ML IV ONE (01:00)
[2022-03-24] MEDS ORDERED: KETOROLAC 15MG/ML VIAL IV ONE (01:00)
[2022-03-24 01:23] VITALS: BP 164/111
[2022-03-24] MEDS ORDERED: ONDA4TAB50 MT (03:45)
[2022-03-24] MEDS ORDERED: IBUP-2028 MT (03:45)
[2022-03-24] MEDS ORDERED: METOCLOPRAMIDE HCL 10MG/2ML VIAL IV STA (07:36)
== END 2022-03-24 09:42 | disposition left against medical advice (07) ==
LOC: ER 20:09
DX: S00.81XA Abrasion of other part of head, initial encounter (principal); S39.81XA Other specified injuries of abdomen, initial encounter; Z98.890 Other specified postprocedural states; Z90.710 Acquired absence of both cervix and uterus; Z87.19 Personal history of other diseases of the digestive system; V03.90XA Pedestrian on foot injured in collision with car, pick-up truck or van, unspecified whether traffic or nontraffic accident, initial encounter; Y93.89 Activity, other specified; Y92.488 Other paved roadways as the place of occurrence of the external cause
CPT/HCPCS: 70450; 74176; 76705; 93005; 99284; J1885; J2405; J2765; J7030; Q0162